=== PATIENT | male | born 1960 ===

== ENCOUNTER 2017-12-30 23:07 | Emergency (ER) | payer OTHER ==
[2017-12-30 23:11] VITALS: BMI 27.4
[2017-12-30 23:16] VITALS: BP 148/86; PULSE 78; RESP 18; TEMP 98.4; O2SAT 96
[2017-12-30] MEDS ORDERED: Naproxen 550 mg Tab PO STA (23:30)
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
== END 2017-12-30 23:49 | disposition home or self-care (01) ==
LOC: ED 23:07
DX: S00.83XA Contusion of other part of head, initial encounter (principal); Y04.0XXA Assault by unarmed brawl or fight, initial encounter; Y99.0 Civilian activity done for income or pay; Z87.891 Personal history of nicotine dependence